=== PATIENT | female | born 1930 | race American Indian/Alaskan Native ===

== ENCOUNTER 2020-12-25 22:19 | Emergency (ER) | payer MEDICARE ==
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
[2020-12-25 23:18] LABS: Basophils % (Auto) 0.6 % (0.0-1.8); Eosinophils # (Auto) 0.1 K/mm3 (0.0-0.4); Eosinophils % (Auto) 0.8 % (0.0-4.3); Hematocrit 35.4 % (30.3-42.9); Hemoglobin 12.1 gm/dl (10.1-14.3); Lymphocytes # (Auto) 1.1 K/mm3 (1.2-5.4); Lymphocytes % (Auto) 13.1 % (13.4-35.0); Mean Corpuscular HGB Conc 34 % (30-34); Mean Corpuscular Volume 95 fl (79-97); Monocytes # (Auto) 0.8 K/mm3 (0.0-0.8); Monocytes % (Auto) 9.4 % (0.0-7.3); Platelet Count 264 K/mm3 (140-440); Red Blood Count 3.74 M/mm3 (3.65-5.03); Red Cell Distribution Width 13.4 % (13.2-15.2)
[2020-12-25 23:32] LABS: Calcium 10.1 mg/dL (8.4-10.2)
[2020-12-25 23:38] LABS: Alanine Aminotransferase 6 units/L (7-56); Albumin 4.3 g/dL (3.9-5)
[2020-12-25 23:43] LABS: Bilirubin,Direct < 0.2 mg/dL (0-0.2)
[2020-12-25 23:49] LABS: Bilirubin,Urine NEG (Negative); Blood,Urine NEG (Negative); Color,Urine Straw (Yellow); Hyaline Casts,Urine 1 /LPF; Mucus,Urine FEW /HPF; Protein,Urine <15 mg/dL mg/dL (Negative); Urobilinogen,Urine < 2.0 mg/dL (<2.0)
[2020-12-26] MEDS ORDERED: SODIUM CHLORIDE 0.9% 1000 ML 1,000 ML IV ONE (00:06)
[2020-12-26] MEDS ORDERED: ACETAMINOPHEN 325 MG/10.15 ML ORAL LIQD UNIT DOSE PO ONE (00:20)
[2020-12-26] MEDS ORDERED: cefTRIAXone/NS 1 GM/50 ML 1 GM/50 ML BAG IV ONE (00:46)
[2020-12-26] MEDS: traZODone 100 MG TAB PO SCH (22:51)
[2020-12-26] MEDS: cephALEXin 500 MG CAP PO SCH (22:51)
[2020-12-27] MEDS: QUEtiapine 25 MG TAB PO SCH (08:11)
[2020-12-27] MEDS: MEMANTINE 10 MG TAB PO SCH (10:00)
[2020-12-27] MEDS: cephALEXin 500 MG CAP PO SCH (10:00)
[2020-12-27] MEDS: amLODIPine 10 MG TAB PO SCH (10:00)
[2020-12-27] MEDS: FERROUS SULFATE 325 MG TAB PO SCH (10:00)
[2020-12-27] MEDS: LISINOPRIL 40 MG TAB PO SCH (10:00)
[2020-12-27] MEDS: BUMETANIDE 1 MG TAB PO SCH (10:00)
[2020-12-27] MEDS: DOCUSATE SODIUM 100 MG CAP PO SCH (10:00)
[2020-12-27] MEDS: hydrALAZINE 25 MG TAB PO SCH (10:00)
[2020-12-28] MEDS: QUEtiapine 25 MG TAB PO SCH ×5 (02:27→21:16)
[2020-12-28] MEDS: hydrALAZINE 25 MG TAB PO SCH ×3 (02:27→22:13)
[2020-12-28] MEDS: traZODone 100 MG TAB PO SCH ×2 (02:28→22:13)
[2020-12-28] MEDS: cephALEXin 500 MG CAP PO SCH ×3 (02:28→22:13)
[2020-12-28] MEDS: MEMANTINE 10 MG TAB PO SCH ×3 (02:28→22:13)
[2020-12-28] MEDS ORDERED: ACETAMINOPHEN 325 MG/10.15 ML ORAL LIQD UNIT DOSE PO ONE (11:16)
[2020-12-28] MEDS: DOCUSATE SODIUM 100 MG CAP PO SCH (11:34)
[2020-12-28] MEDS: amLODIPine 10 MG TAB PO SCH (11:34)
[2020-12-28] MEDS: FERROUS SULFATE 325 MG TAB PO SCH (11:34)
[2020-12-28] MEDS: LISINOPRIL 40 MG TAB PO SCH (11:37)
[2020-12-28] MEDS: BUMETANIDE 1 MG TAB PO SCH (11:37)
[2020-12-28] MEDS ORDERED: ONDANSETRON 4 MG/2 ML INJ IM ONE (12:54)
[2020-12-28] MEDS ORDERED: MORPHINE 4 MG/1 ML INJ IM ONE (12:54)
--- NOTE | 2020-12-28 12:57 | Event Note ---
Date: 12/28/20 Ms. Maloney is a pleasant 89 years old female with history of dementia. Patient is waiting for case management and placement. She started complaining of left leg and knee pain. I examined her she does have tenderness around the knee area. No recent injury. Patient also does not have any fever or chills. I gave patient morphine 4 mg and Zofran 4 mg. I order left lower extremity Doppler ultrasound for further evaluation.
[2020-12-29] MEDS: cephALEXin 500 MG CAP PO SCH (09:55)
[2020-12-29] MEDS: DOCUSATE SODIUM 100 MG CAP PO SCH (09:55)
[2020-12-29] MEDS: BUMETANIDE 1 MG TAB PO SCH (09:56)
[2020-12-29] MEDS: QUEtiapine 25 MG TAB PO SCH ×2 (09:56→19:02)
[2020-12-29] MEDS: FERROUS SULFATE 325 MG TAB PO SCH (09:56)
[2020-12-29] MEDS: amLODIPine 10 MG TAB PO SCH (09:57)
[2020-12-29] MEDS: hydrALAZINE 25 MG TAB PO SCH (09:57)
[2020-12-29] MEDS: LISINOPRIL 40 MG TAB PO SCH (09:58)
[2020-12-29] MEDS: MEMANTINE 10 MG TAB PO SCH (19:02)
[2020-12-30] MEDS: MEMANTINE 10 MG TAB PO SCH ×3 (00:40→22:42)
[2020-12-30] MEDS: QUEtiapine 25 MG TAB PO SCH ×4 (00:43→21:28)
[2020-12-30] MEDS: traZODone 100 MG TAB PO SCH ×2 (00:44→22:42)
[2020-12-30] MEDS: hydrALAZINE 25 MG TAB PO SCH ×3 (00:45→22:44)
[2020-12-30] MEDS: amLODIPine 10 MG TAB PO SCH (10:03)
[2020-12-30] MEDS: LISINOPRIL 40 MG TAB PO SCH (10:04)
[2020-12-30] MEDS: BUMETANIDE 1 MG TAB PO SCH (10:17)
[2020-12-30] MEDS: FERROUS SULFATE 325 MG TAB PO SCH (10:17)
[2020-12-30] MEDS: DOCUSATE SODIUM 100 MG CAP PO SCH (10:17)
[2020-12-30] MEDS ORDERED: ACETAMINOPHEN 325 MG TAB PO ONE (23:32)
[2020-12-31] MEDS ORDERED: ALPRAZolam 0.5 MG TAB PO ONE (00:36)
--- NOTE | 2020-12-31 08:07 | XRay Report ---
CLINICAL DATA: left leg pain TECHNICAL DATA: Two views were obtained, AP and lateral FINDINGS: There is no acute fracture or dislocation. The visualized joint spaces are normal. Total left knee a rthroplasty IMPRESSION: No acute radiographic abnormality. Signer Name: Guilherme Staley MD Signed: 12/31/2020 2:29 AM Workstation Name: [id number]
[2020-12-31 11:25] VITALS: BP 144/53
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
[2020-12-31] MEDS: amLODIPine 10 MG TAB PO SCH (13:05)
[2020-12-31] MEDS: FERROUS SULFATE 325 MG TAB PO SCH (13:05)
[2020-12-31] MEDS: LISINOPRIL 40 MG TAB PO SCH (13:05)
[2020-12-31] MEDS ORDERED: ACETAMINOPHEN 325 MG TAB PO PRN (13:22)
[2020-12-31] MEDS: hydrALAZINE 25 MG TAB PO SCH (16:31)
[2020-12-31] MEDS: QUEtiapine 25 MG TAB PO SCH (16:31)
[2020-12-31] MEDS: BUMETANIDE 1 MG TAB PO SCH (16:32)
[2020-12-31] MEDS: DOCUSATE SODIUM 100 MG CAP PO SCH (16:32)
[2020-12-31] MEDS: MEMANTINE 10 MG TAB PO SCH (16:32)
== END 2020-12-31 18:00 | disposition home or self-care (01) ==
LOC: ED 22:19
DX: F03.90 Unspecified dementia, unspecified severity, without behavioral disturbance, psychotic disturbance, mood disturbance, and anxiety (principal); N39.0 Urinary tract infection, site not specified; N28.9 Disorder of kidney and ureter, unspecified; I10 Essential (primary) hypertension; M19.90 Unspecified osteoarthritis, unspecified site; Z79.899 Other long term (current) drug therapy
CPT/HCPCS: 36415; 73552; 80048; 80076; 81001; 85025; 87086; 96365; 96372; 99284; J0696; J2270; J2405; J7030